=== PATIENT | male | born 1990 | race Caucasian/White ===

== ENCOUNTER 2017-09-04 11:41 | Emergency (ER) | payer BC, SELFPAY ==
[2017-09-04 11:49] VITALS: BP 143/82; PULSE 82; RESP 18; TEMP 36.4; O2SAT 99; BMI 24.3
--- NOTE | 2017-09-04 12:02 | ED.LOWEXIN ---
HPI - Extremity Injury (Lower) <MELONY Rivera - Last Filed: 09/04/17 22:48> General Chief Complaint: Extremity Injury, Lower Stated Complaint: STATES INFECTION ON HIS LEG Time Seen by Provider: 09/04/17 12:02 History of Present Illness HPI Narrative: 27-year-old male with history of type 1 diabetes here for complaint of swelling and pain with redness to his right knee that started this morning. He denies any trauma to the right knee. He denies any open lesions to the right knee. No fevers. No chills. He does state that he recently got back from vacation in [facility] and his only injury was where he scraped his toe on the bottom of the pool. No erythema or swelling to the right foot or toes. Increased pain with palpation to the anterior right knee. He does report having some pain with flexion of the right knee. He denies any other concerns or complaints at this time. Related Data Home Medications Medication Instructions Recorded Confirmed insulin detemir U-100 [Levemir 12 units SUB-Q BID 09/04/17 09/04/17 U-100 Insulin] insulin lispro [Humalog U-100 1 dose SUB-Q TIDWM 09/04/17 09/04/17 Insulin] Previous Rx's Medication Instructions Recorded clindamycin HCl 300 mg PO QID #28 cap 09/04/17 Allergies Allergy/AdvReac Type Severity Reaction Status Date / Time No Known Drug Allergies Allergy Verified 09/04/17 11:49 Review of Systems <MELONY Rivera - Last Filed: 09/04/17 22:48> Constitutional Denies chills, Denies fever(s), Denies lethargy and Denies weakness Eyes Denies change in vision, Denies eye discharge, Denies irritation and Denies loss of vision ENT Ears, Nose, Mouth, and Throat: Denies change in voice, Denies neck pain and Denies sore throat Cardiovascular Denies chest pain, Denies irregular heart rhythm, Denies lightheadedness, Denies palpitations, Denies dyspnea, Denies dyspnea on exertion and Denies orthopnea Respiratory Denies cough, Denies dyspnea, Denies dyspnea on exertion and Denies wheezing Gastrointestinal Gastrointestinal: Denies abdominal pain, Denies change in bowel habits, Denies diarrhea, Denies nausea and Denies vomiting Genitourinary Denies hematuria, Denies flank pain, Denies urinary incontinence and Denies urinary urgency Musculoskeletal Reports joint swelling and Denies neck pain Comments: Right knee pain and swelling Integumentary/Breasts Denies pruritus, Denies erythema, Denies rash and Denies wounds Neurologic Denies confusion, Denies loss of vision and Denies weakness Psychiatric Denies anxiety, Denies confusion, Denies depression, Denies homicidal ideation and Denies suicidal ideation Endocrine Denies palpitations Allergic/Immunologic Denies wheezing Exam <MELONY Rivera - Last Filed: 09/04/17 22:48> Initial Vital Signs Initial Vital Signs: Vital Signs Temperature 97.6 F 09/04/17 11:49 Pulse Rate 82 09/04/17 11:49 Respiratory Rate 18 09/04/17 11:49 Blood Pressure 143/82 H 09/04/17 11:49 Pulse Oximetry 99 09/04/17 11:49 Const General: cooperative and well developed Nutritional Appearance: well nourished Orientation: alert, awake, oriented x3 and not confused [facility] Mouth: oral mucosae normal and moist mucous membranes Eyes Conjunctivae: conjunctivae normal Sclera: sclerae normal Pupils: PERRL Resp Effort & Inspection: normal respiratory effort, able to speak in complete sentences, no respiratory distress and no use of accessory muscles Auscultation: clear to auscultation bilaterally, no rales, no rhonchi and no wheezes Cardio Rate: regular rate Rhythm: regular rhythm Heart Sounds: no click, no gallops, no murmurs and no rubs Pulses: normal peripheral pulses Skin General: no rashes or lesions noted, No jaundice and No petechiae Extrem Other: Swelling and erythema to anterior portion of the right knee. Nontraumatic. No deformities. Distal sensation is intact. Distal pulses are intact. Full range of motion with the right knee with some slight discomfort with flexion. Negative anterior posterior drawer sign <Jose Tariq DO - Last Filed: 09/05/17 07:04> Initial Vital Signs Initial Vital Signs: Vital Signs Temperature 97.6 F 09/04/17 11:49 Pulse Rate 82 09/04/17 11:49 Respiratory Rate 18 09/04/17 11:49 Blood Pressure 143/82 H 09/04/17 11:49 Pulse Oximetry 99 09/04/17 11:49 Course <MELONY Rivera - Last Filed: 09/04/17 22:48> Orders Ordered: Discontinued Medications Vancomycin HCl 1,500 mg/ (Sodium Chloride) 500 mls @ 333.333 mls/hr IV NOW ONE Stop: 09/04/17 13:45 Last Infusion: 09/04/17 16:15 Dose: 0 mls/hr Admin: 09/04/17 14:30 Dose: 333.333 mls/hr Vital Signs - 8 hr 09/04/17 15:44 Pulse Rate 77 Respiratory Rate 16 Blood Pressure [Left Arm] 121/76 H Pulse Oximetry 100 <Jose Tariq DO - Last Filed: 09/05/17 07:04> Orders Ordered: Discontinued Medications Vancomycin HCl 1,500 mg/ (Sodium Chloride) 500 mls @ 333.333 mls/hr IV NOW ONE Stop: 09/04/17 13:45 Last Infusion: 09/04/17 16:15 Dose: 0 mls/hr Admin: 09/04/17 14:30 Dose: 333.333 mls/hr Vital Signs - 8 hr 09/04/17 15:44 Pulse Rate 77 Respiratory Rate 16 Blood Pressure [Left Arm] 121/76 H Pulse Oximetry 100 MDM - Extremity Injury (Lower) <MELONY Rivera - Last Filed: 09/04/17 22:48> Lab Data Result diagrams: 09/04/17 12:40 09/04/17 12:40 Lab Results 09/04/17 09/04/17 09/04/17 Range/Units 12:40 12:40 12:40 WBC 12.9 H (4.5-11.0) X10^3/uL RBC 5.12 (4.5-5.9) X10^6/uL Hgb 15.0 (13.5-17.5) g/dL Hct 43.9 (41-53) % MCV 85.8 (80-100) fL MCH 29.3 (26-34) PG MCHC 34.2 (30-36) % RDW 13.1 (11.6-14.8) % Plt Count 226 (150-400) X10^3/uL Neut % (Auto) 83.5 H (50-75) % Lymph % (Auto) 9.5 L (25-40) % Preston % (Auto) 6.3 (3-14) % Eos % (Auto) 0.4 L (2-4) % Baso % (Auto) 0.3 (0-2) % Neut # (Auto) 67268 H (0805-7524) /uL ESR 1 (0-15) MM/HR Sodium 133 L (137-145) mmol/L Potassium 3.9 (3.4-5.1) mmol/L Chloride 95 L (98-107) mmol/L Carbon Dioxide 27 (22-32) mmol/L BUN 18 (9-20) mg/dL Creatinine 0.80 (0.66-1.25) mg/dL Estimated GFR > 60.0 (>60) mL/min BUN/Creatinine Ratio 22.5 H (6-22) Glucose 216 H (70-100) mg/dL Lactate (0.7-2.1) mmol/L Calcium 8.9 (8.4-10.2) mg/dL Total Bilirubin 0.5 (0.2-1.3) mg/dL AST 55 (17-59) IU/L ALT 33 (21-72) IU/L Alkaline Phosphatase 160 H (38-126) U/L Total Protein 7.1 (6.3-8.2) g/dL Albumin 4.3 (3.5-5.0) g/dL Globulin 2.8 (1.7-4.1) g/dL Albumin/Globulin Ratio 1.5 (1.0-2.8) Procalcitonin < 0.05 (<0.5) ng/mL 09/04/17 Range/Units 12:40 WBC (4.5-11.0) X10^3/uL RBC (4.5-5.9) X10^6/uL Hgb (13.5-17.5) g/dL Hct (41-53) % MCV (80-100) fL MCH (26-34) PG MCHC (30-36) % RDW (11.6-14.8) % Plt Count (150-400) X10^3/uL Neut % (Auto) (50-75) % Lymph % (Auto) (25-40) % Preston % (Auto) (3-14) % Eos % (Auto) (2-4) % Baso % (Auto) (0-2) % Neut # (Auto) (5401-0400) /uL ESR (0-15) MM/HR Sodium (137-145) mmol/L Potassium (3.4-5.1) mmol/L Chloride (98-107) mmol/L Carbon Dioxide (22-32) mmol/L BUN (9-20) mg/dL Creatinine (0.66-1.25) mg/dL Estimated GFR (>60) mL/min BUN/Creatinine Ratio (6-22) Glucose (70-100) mg/dL Lactate 0.8 (0.7-2.1) mmol/L Calcium (8.4-10.2) mg/dL Total Bilirubin (0.2-1.3) mg/dL AST (17-59) IU/L ALT (21-72) IU/L Alkaline Phosphatase (38-126) U/L Total Protein (6.3-8.2) g/dL Albumin (3.5-5.0) g/dL Globulin (1.7-4.1) g/dL Albumin/Globulin Ratio (1.0-2.8) Procalcitonin (<0.5) ng/mL Imaging Data knee : Radiologist's impression: PROCEDURE: XR KNEE RT 3V INDICATIONS: 27 year-old male with right knee redness and swelling. TECHNIQUE: 3 views of the knee were acquired. COMPARISON: None. FINDINGS: Bones: No fractures or dislocations. No suspicious bony lesions. Soft tissues: There is prepatellar soft tissue swelling. No joint effusion. No suspicious soft tissue calcifications. IMPRESSION: Prepatellar soft tissue swelling, without underlying bony abnormalities. Dictated by: Sergio Wu M.D. on 09/04/2017 at 12:54 Approved by: Sergio Wu M.D. on 09/04/2017 at 12:55 [facility] Narrative Medical decision making narrative: X-ray the right knee was obtained was negative for any acute findings. CBC shows elevated white count of 12 kg. Procalcitonin and lactate and ESR were obtained were unremarkable. Attempted to needle aspirate synovial fluid from the right knee was unable to. Discussed case with Dr. silva hospitalist for primary care provider who recommended IV antibiotics and then oral antibiotics and close follow-up primary care provider tomorrow. Differential between cellulitis of anterior knee versus starting septic knee. He was given vancomycin in the emergency room. He is placed on clindamycin orally. Patient is to call primary care office and schedule appointment for tomorrow. [id number] Tylenol or Motrin as needed for any discomfort. Return emergency room for any worsening symptoms. <Jose TariqDO - Last Filed: 09/05/17 07:04> Lab Data Lab Results 09/04/17 09/04/17 09/04/17 Range/Units 12:40 12:40 12:40 WBC 12.9 H (4.5-11.0) X10^3/uL RBC 5.12 (4.5-5.9) X10^6/uL Hgb 15.0 (13.5-17.5) g/dL Hct 43.9 (41-53) % MCV 85.8 (80-100) fL MCH 29.3 (26-34) PG MCHC 34.2 (30-36) % RDW 13.1 (11.6-14.8) % Plt Count 226 (150-400) X10^3/uL Neut % (Auto) 83.5 H (50-75) % Lymph % (Auto) 9.5 L (25-40) % Preston % (Auto) 6.3 (3-14) % Eos % (Auto) 0.4 L (2-4) % Baso % (Auto) 0.3 (0-2) % Neut # (Auto) 07996 H (9870-5136) /uL ESR 1 (0-15) MM/HR Sodium 133 L (137-145) mmol/L Potassium 3.9 (3.4-5.1) mmol/L Chloride 95 L (98-107) mmol/L Carbon Dioxide 27 (22-32) mmol/L BUN 18 (9-20) mg/dL Creatinine 0.80 (0.66-1.25) mg/dL Estimated GFR > 60.0 (>60) mL/min BUN/Creatinine Ratio 22.5 H (6-22) Glucose 216 H (70-100) mg/dL Lactate (0.7-2.1) mmol/L Calcium 8.9 (8.4-10.2) mg/dL Total Bilirubin 0.5 (0.2-1.3) mg/dL AST 55 (17-59) IU/L ALT 33 (21-72) IU/L Alkaline Phosphatase 160 H (38-126) U/L Total Protein 7.1 (6.3-8.2) g/dL Albumin 4.3 (3.5-5.0) g/dL Globulin 2.8 (1.7-4.1) g/dL Albumin/Globulin Ratio 1.5 (1.0-2.8) Procalcitonin < 0.05 (<0.5) ng/mL 09/04/17 Range/Units 12:40 WBC (4.5-11.0) X10^3/uL RBC (4.5-5.9) X10^6/uL Hgb (13.5-17.5) g/dL Hct (41-53) % MCV (80-100) fL MCH (26-34) PG MCHC (30-36) % RDW (11.6-14.8) % Plt Count (150-400) X10^3/uL Neut % (Auto) (50-75) % Lymph % (Auto) (25-40) % Preston % (Auto) (3-14) % Eos % (Auto) (2-4) % Baso % (Auto) (0-2) % Neut # (Auto) (7002-0288) /uL ESR (0-15) MM/HR Sodium (137-145) mmol/L Potassium (3.4-5.1) mmol/L Chloride (98-107) mmol/L Carbon Dioxide (22-32) mmol/L BUN (9-20) mg/dL Creatinine (0.66-1.25) mg/dL Estimated GFR (>60) mL/min BUN/Creatinine Ratio (6-22) Glucose (70-100) mg/dL Lactate 0.8 (0.7-2.1) mmol/L Calcium (8.4-10.2) mg/dL Total Bilirubin (0.2-1.3) mg/dL AST (17-59) IU/L ALT (21-72) IU/L Alkaline Phosphatase (38-126) U/L Total Protein (6.3-8.2) g/dL Albumin (3.5-5.0) g/dL Globulin (1.7-4.1) g/dL Albumin/Globulin Ratio (1.0-2.8) Procalcitonin (<0.5) ng/mL Discharge Plan Departure Patient Disposition: Home, Self-Care Clinical Impression: Cellulitis of knee, right Discharge Date/Time: 09/04/17 16:30 Interventions: ED Discharge Assessment Last Done: 09/04/17 16:28 Instructions: DI for Cellulitis -- Adult Activity Restrictions/Additional Instructions: X-ray the right knee was obtained was negative for any acute findings. Laboratory results show elevated white count most likely due to inflammation and starting infection. You are given IV antibiotics in the emergency room and placed on oral antibiotics to take at home clindamycin take as directed. Use [id number] Tylenol or Motrin as needed for any discomfort. Call your primary care provider's office and schedule follow-up appointment tomorrow for re-evaluation. For any worsening symptoms return to the emergency room. Prescriptions: New clindamycin HCl 300 mg capsule 300 mg PO QID Qty: 28 RF: 0 No Action insulin lispro [Humalog U-100 Insulin] 100 unit/mL solution 1 dose Sub-Q TIDWM RF: 0 insulin detemir U-100 [Levemir U-100 Insulin] 100 unit/mL solution 12 units Sub-Q BID RF: 0 Referrals: Layo Gentile MD [Primary Care Provider] - <Jose Tariq DO - Last Filed: 09/05/17 07:04> Cosign ED Attending Anderson Attestation: I was available for consultation during this patient's emergency department encounter
--- NOTE | 2017-09-04 12:30 | DI.RAD.S_ITS ---
PROCEDURE: XR KNEE RT 3V INDICATIONS: 27 year-old male with right knee redness and swelling. TECHNIQUE: 3 views of the knee were acquired. COMPARISON: None. FINDINGS: Bones: No fractures or dislocations. No suspicious bony lesions. Soft tissues: There is prepatellar soft tissue swelling. No joint effusion. No suspicious soft tissue calcifications. IMPRESSION: Prepatellar soft tissue swelling, without underlying bony abnormalities. Dictated by: Sergio Wu M.D. on 09/04/2017 at 12:54 Approved by: Sergio Wu M.D. on 09/04/2017 at 12:55
--- NOTE | 2017-09-04 12:52 | PC.NURSE ---
right knee is swollen and painful
[2017-09-04 12:53] VITALS: BP 123/79; PULSE 87; RESP 16; TEMP 36.4; O2SAT 100
[2017-09-04 12:57] LABS: Add Manual Diff / Slide Review NO; Basophils Percent Auto 0.3 % (0-2); Eosinophils Percent Auto 0.4 % (2-4); Hematocrit 43.9 % (41-53); Lymphocytes Percent Auto 9.5 % (25-40); Mean Corpuscular HGB Conc 34.2 % (30-36); Mean Corpuscular Hemoglobin 29.3 PG (26-34); Mean Corpuscular Volume 85.8 fL (80-100); Monocytes Percent Auto 6.3 % (3-14); Neutrophils Absolute Auto 10800 /uL (3000-5900); Neutrophils Percent Auto 83.5 % (50-75); Platelet Count 226 X10^3/uL (150-400); Red Blood Cell Count 5.12 X10^6/uL (4.5-5.9); Red Cell Distribution Width 13.1 % (11.6-14.8); White Blood Cell Count 12.9 X10^3/uL (4.5-11.0)
[2017-09-04 13:14] LABS: Alanine Aminotransferase 33 IU/L (21-72); Albumin 4.3 g/dL (3.5-5.0); Albumin Globulin Ratio 1.5 (1.0-2.8); Alkaline Phosphatase 160 U/L (38-126); Aspartate Aminotransferase 55 IU/L (17-59); BUN Creatinine Ratio 22.5 (6-22); Bilirubin Total 0.5 mg/dL (0.2-1.3); Blood Urea Nitrogen 18 mg/dL (9-20); Calcium 8.9 mg/dL (8.4-10.2); Carbon Dioxide 27 mmol/L (22-32); Chloride 95 mmol/L (98-107); Estimated Glomerular Filt Rate > 60.0 mL/min (>60); Globulin 2.8 g/dL (1.7-4.1); Glucose 216 mg/dL (70-100); HEMOLYSIS 23 (0-50); Lactate (Lactic Acid) 0.8 mmol/L (0.7-2.1); Potassium 3.9 mmol/L (3.4-5.1); Sodium 133 mmol/L (137-145); Total Protein 7.1 g/dL (6.3-8.2)
[2017-09-04 13:30] LABS: Procalcitonin < 0.05 ng/mL (<0.5)
[2017-09-04 13:44] LABS: Erythrocyte Sedimentation Rate 1 MM/HR (0-15)
[2017-09-04 14:04] VITALS: BP 136/80; PULSE 78; RESP 16; TEMP 36.3; O2SAT 100
[2017-09-04] MEDS: VANCOMYCIN 1,500 MG in SODIUM CHLORIDE 0.9% 500 ML 333.333 ML IV (14:30)
[2017-09-04 15:44] VITALS: BP 121/76; PULSE 77; RESP 16; O2SAT 100
== END 2017-09-04 16:30 | disposition home or self-care (01) ==
PROVIDERS: Emergency Provider Nurse Practitioner Family; Family Provider Family Medicine; PCP Family Medicine
DX: L03.115 Cellulitis of right lower limb (principal)
CPT/HCPCS: 36415; 36591; 73562; 80053; 83605; 84145; 85025; 85651; 87040; 87070; 87075; 87205; 96365; 96366; 99283; 99284

== ENCOUNTER → 2018-10-21 14:25 | Outpatient (CLI) | payer BC, SELFPAY ==
--- NOTE | 2018-10-21 | DI.RAD.S_ITS ---
PROCEDURE: XR FINGER RT MIN 2V INDICATIONS: right pinky crush injury TECHNIQUE: AP hand, 2 views of the fifth finger(s) acquired. COMPARISON: None. FINDINGS: Bones: No dislocations. No suspicious bony lesions. There is an intra-articular fracture across the base of the fifth distal phalanx, extending into the palmar articular surface. Soft tissues: No suspicious soft tissue calcifications. IMPRESSION: Acute intra-articular fifth distal phalanx base fracture. Mild to moderate angulation abnormality. Dictated by: Enrike Hope M.D. on 10/21/2018 at 15:18 Approved by: Enrike Hope M.D. on 10/21/2018 at 15:19
== END ==
PROVIDERS: Visit Provider Student in an Organized Health Care Education/Training Program
DX: S67.196A Crushing injury of right little finger, initial encounter (principal); S62.636A Displaced fracture of distal phalanx of right little finger, initial encounter for closed fracture; X58.XXXA Exposure to other specified factors, initial encounter
CPT/HCPCS: 73140